=== PATIENT | female | born 1995 | race Hispanic/Latino ===

== ENCOUNTER 2023-03-04 17:06 | Emergency (ER) | payer MEDICAID, OTHER ==
[~2023-03-04] VITALS: Ht 154.9 cm; Wt 65.8 kg
[~2023-03-04 17:06] MED LIST: IBUP-2088 PO
[2023-03-04 17:07] VITALS: BP 128/86; PULSE 84; RESP 16
[2023-03-04] MEDS ORDERED: IBUPROFEN 600 MG TABLET ONE (18:57)
[2023-03-04] MEDS ORDERED: IBUPROFEN 600 MG TABLET PO ONE (19:00)
== END 2023-03-04 20:48 | disposition left against medical advice (07) ==
LOC: EDH 17:06
DX: Z04.3 Encounter for examination and observation following other accident (principal); Z53.21 Procedure and treatment not carried out due to patient leaving prior to being seen by health care provider
CPT/HCPCS: 70450; 72072; 72100; 72125; 99281